=== PATIENT | male | born 1945 | race Caucasian/White ===

== ENCOUNTER 2024-08-08 14:31 | Inpatient (IN) | payer OTHER, MEDICAID ==
[~2024-08-08] VITALS: Ht 172.7 cm; Wt 59.1 kg
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
[2024-08-08 14:40] VITALS: PULSE 80; RESP 12; O2SAT 98
[2024-08-08] MEDS: LORazepam 2MG/ML-1ML VIAL IV ONE (15:05)
[2024-08-08] MEDS: SODIUM CHLORIDE 0.9% 500 ML IV ONE (15:05)
[2024-08-08 15:35] LABS: Basophils # (auto) 0 10 ^3/uL (0-0.2); Chloride 110 mmol/L (98-107); Eosinophils # (auto) 0.1 10 ^3/uL (0-0.8); Hemoglobin 9.8 g/dL (13.5-17.5); Lymphocytes # (auto) 0.9 10 ^3/uL (0.4-5.4); Neutrophils # (auto) 4.3 10 ^3/uL (1.6-8.6); Potassium 3.3 mmol/L (3.5-5.1); Sodium 141 mmol/L (136-145); White Blood Cell 5.8 10^3/uL (4.4-10.8)
[2024-08-08 15:36] LABS: Anion Gap 6 (5-15); Calcium 7.5 mg/dL (8.7-10.4); Carbon Dioxide 25 mmol/L (20-31)
[2024-08-08 15:37] LABS: Basophils % (auto) 0.5 % (0.0-2.0); Eosinophils % (auto) 2.4 % (0.0-7.0); Hematocrit 29.8 % (41.0-53.0); Lymphocytes % (auto) 15.1 % (10.0-50.0); Mean Corpuscular Volume 78.6 fL (80.0-100.0); Monocytes # (auto) 0.5 10 ^3/uL (0-1.3); Monocytes % (auto) 8.3 % (0.0-12.0); Neutrophils % (auto) 73.7 % (37.0-80.0); Platelet Count (auto) 241 10^3/uL (140-450); Red Blood Cells 3.79 10^6/uL (4.5-5.90); Red Cell Distribution Width 15.3 % (11.8-14.3)
[2024-08-08 15:41] LABS: Blood Urea Nitrogen 22 mg/dL (9-23); Glucose 83 mg/dL (74-106)
[2024-08-08 19:30] VITALS: PULSE 88; RESP 13; O2SAT 97
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
[2024-08-08] MEDS ORDERED: MORPHINE SULFATE INJ 2 MG/ml SYRG IV PRN (22:45)
[2024-08-08] MEDS ORDERED: ACETAMINOPHEN 325 MG TAB PO PRN (22:45)
[2024-08-08] MEDS ORDERED: ONDANSETRON HCL 4 MG/2 ML VIAL IV PRN (22:45)
[2024-08-08] MEDS ORDERED: hydrALAZINE HCL 20 MG/ML VL IV PRN (22:45)
[2024-08-08] MEDS ORDERED: NITROGLYCERIN 0.4 MG SL TAB SL PRN (22:45)
[2024-08-08] MEDS: CALCIUM GLUC 1,000mg/50ml-NS 50 ML IV ONE (23:25)
[2024-08-08] MEDS: POTASSIUM CHL 20 Meq TABLET PO ONE (23:27)
[2024-08-09] VITALS (8 sets, daily range): BP systolic 119–168; BP diastolic 68–90; PULSE 60–82; RESP 16–18; TEMP 97.6–98.7; O2SAT 93–98
[2024-08-09] MEDS: MORPHINE SULFATE INJ 2 MG/ml SYRG IV PRN (01:23)
[2024-08-09] MEDS: GABAPENTIN 300 MG CAP PO ONE (04:02)
[2024-08-09] MEDS: HYDROcodone-ACET 5/325MG TAB PO PRN (04:04)
[2024-08-09] MEDS: SODIUM CHLOR 0.9% PF (SALINE LOCK) 10ML VIAL/SYR IV SCH (06:00)
[2024-08-09 06:34] LABS: Basophils # (auto) 0 10 ^3/uL (0-0.2); Basophils % (auto) 0.5 % (0.0-2.0); Eosinophils # (auto) 0.3 10 ^3/uL (0-0.8); Hematocrit 28.7 % (41.0-53.0); Hemoglobin 9.5 g/dL (13.5-17.5); Lymphocytes # (auto) 1.1 10 ^3/uL (0.4-5.4); Lymphocytes % (auto) 20.7 % (10.0-50.0); Mean Corpuscular Hemoglobin 26.1 pg (28.0-32.0); Mean Corpuscular Hgb Conc. 33.1 g/dL (32.0-36.0); Mean Corpuscular Volume 78.7 fL (80.0-100.0); Monocytes # (auto) 0.5 10 ^3/uL (0-1.3); Monocytes % (auto) 9.9 % (0.0-12.0); Neutrophils # (auto) 3.3 10 ^3/uL (1.6-8.6); Neutrophils % (auto) 62.9 % (37.0-80.0); Nucleated Red Blood Cells % 0.1 %; Platelet Count (auto) 219 10^3/uL (140-450); Red Blood Cells 3.64 10^6/uL (4.5-5.90); Red Cell Distribution Width 15.2 % (11.8-14.3); White Blood Cell 5.3 10^3/uL (4.4-10.8)
[2024-08-09 06:55] LABS: Alanine Aminotransferase 17 U/L (7-40); Alkaline Phosphatase 102 U/L (46-116); Anion Gap 5 (5-15); Aspartate Aminotransferase 16 U/L (13-40); BUN/Creatinine Ratio 19.1 (10.0-20.0); Blood Urea Nitrogen 18 mg/dL (9-23); Calcium 8.8 mg/dL (8.7-10.4); Carbon Dioxide 28 mmol/L (20-31); Chloride 106 mmol/L (98-107); Glucose 89 mg/dL (74-106); Sodium 139 mmol/L (136-145)
[2024-08-09 06:56] LABS: Albumin 3.1 g/dL (3.2-4.8); Bilirubin, Total 0.7 mg/dL (0.2-1.0); Total Protein 6.1 g/dL (5.7-8.2)
[2024-08-09] MEDS ORDERED: cloNIDine HCL 0.1 MG TAB PO PRN (07:15)
[2024-08-09] MEDS: GABAPENTIN 300 MG CAP PO SCH (09:24)
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
[2024-08-10] VITALS (8 sets, daily range): BP systolic 119–164; BP diastolic 70–88; PULSE 62–76; RESP 16–21; TEMP 97.5–98.2; O2SAT 19–99
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
[2024-08-11] VITALS (8 sets, daily range): BP systolic 114–151; BP diastolic 68–91; PULSE 62–80; RESP 16–20; TEMP 97.7–98.6; O2SAT 94–99
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
[2024-08-12] VITALS (7 sets, daily range): BP systolic 113–140; BP diastolic 65–78; PULSE 60–83; RESP 17–19; TEMP 97.4–98.1; O2SAT 95–97
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
[2024-08-12] MEDS: GABAPENTIN 300 MG CAP PO SCH (13:13)
[2024-08-13 07:30] VITALS: RESP 19; O2SAT 97
[2024-08-13 09:00] VITALS: BP 118/60; PULSE 68; RESP 20; TEMP 97.1; O2SAT 93
[2024-08-13 13:00] VITALS: BP 111/72; PULSE 72; RESP 21; TEMP 98.2; O2SAT 94
[2024-08-13 17:00] VITALS: BP 111/76; PULSE 73; RESP 21; TEMP 98.8; O2SAT 98
[2024-08-13 22:00] VITALS: BP 121/81; PULSE 85; RESP 22; TEMP 97.6; O2SAT 99
[2024-08-14 05:00] VITALS: BP 104/64; PULSE 61; RESP 22; TEMP 98; O2SAT 97
[2024-08-14 08:54] VITALS: BP 116/69; PULSE 62; RESP 17; TEMP 97.7; O2SAT 99
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
[2024-08-14 12:39] VITALS: BP 124/70; PULSE 72; RESP 17; TEMP 98; O2SAT 100
[2024-08-14 17:00] VITALS: BP 118/71; PULSE 67; RESP 17; TEMP 98.1; O2SAT 99
[2024-08-14 20:00] VITALS: PULSE 82; RESP 17
[2024-08-14 21:00] VITALS: BP 115/66; PULSE 84; RESP 18; TEMP 98.7; O2SAT 97
[2024-08-14] MEDS: DOCUSATE SOD 100 MG CAP PO PRN (21:00)
[2024-08-15 01:00] VITALS: BP 116/65; PULSE 65; RESP 18; TEMP 97.7; O2SAT 98
[2024-08-15 05:00] VITALS: BP 120/69; PULSE 68; RESP 18; TEMP 97.6; O2SAT 98
[2024-08-15 08:00] VITALS: PULSE 62; RESP 17; O2SAT 97
[2024-08-15 09:00] VITALS: BP 127/75; PULSE 62; RESP 17; TEMP 97.6; O2SAT 97
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
[2024-08-15 11:40] VITALS: BP 128/78; PULSE 66; RESP 17
== END 2024-08-15 14:20 | DRG 641 ==
LOC: ER 14:31 → EDBD 14:31 → OVERFLOW 22:33 → EAST 22:38
PROVIDERS: ADMIT Internal Medicine; ATTEND Family Medicine
DX: R62.7 Adult failure to thrive (principal); Z68.1 Body mass index [BMI] 19.9 or less, adult; E44.0 Moderate protein-calorie malnutrition; G62.9 Polyneuropathy, unspecified; G89.29 Other chronic pain; T50.995A Adverse effect of other drugs, medicaments and biological substances, initial encounter; Z79.899 Other long term (current) drug therapy; Y92.89 Other specified places as the place of occurrence of the external cause; R19.7 Diarrhea, unspecified
CPT/HCPCS: 36415; 80048; 80053; 85025; 86850; 86900; 86901; 97110; 97116; 97163; 97530; G0378

== ENCOUNTER 2024-12-24 18:53 | Emergency (ER) | payer OTHER, MEDICAID ==
[2024-12-25] MEDS ORDERED: GABA-1250 PO (14:43)
[2024-12-25] MEDS ORDERED: CLON0.1T PO (14:45)
[2024-12-25] MEDS ORDERED: FURO20TA3 PO (14:45)
[2024-12-25] MEDS ORDERED: LACT10SO3 PO (14:46)
[2024-12-25] MEDS ORDERED: PANT40TA2 PO (15:08)
== END 2024-12-24 20:24 | disposition left against medical advice (07) ==
LOC: ER 18:53
DX: Z76.0 Encounter for issue of repeat prescription (principal); Z53.21 Procedure and treatment not carried out due to patient leaving prior to being seen by health care provider

== ENCOUNTER 2024-12-25 01:02 | Emergency (ER) | payer OTHER, MEDICAID ==
[~2024-12-25] VITALS: Ht 165.1 cm; Wt 55.5 kg
[2024-12-25] MEDS ORDERED: MORPHINE SULFATE INJ 2 MG/ml SYRG IM PRN (01:15)
[2024-12-25 01:51] VITALS: TEMP 97.5; O2SAT 97
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
[2024-12-25] MEDS: ONDANSETRON ODT 4 MG TAB PO ONE ×2 (02:17→02:23)
[2024-12-25] MEDS: ONDANSETRON ODT 4 MG TAB PO PRN (02:23)
[2024-12-25] MEDS: MORPHINE SULFATE INJ 2 MG/ml SYRG IM ONE ×2 (02:23)
[2024-12-25 02:57] VITALS: BP 107/57; PULSE 88; RESP 16
[2024-12-25] MEDS ORDERED: GABA-1250 PO (14:43)
[2024-12-25] MEDS ORDERED: FURO20TA3 PO (14:45)
[2024-12-25] MEDS ORDERED: CLON0.1T PO (14:45)
[2024-12-25] MEDS ORDERED: LACT10SO3 PO (14:46)
[2024-12-25] MEDS ORDERED: PANT40TA2 PO (15:08)
== END 2024-12-25 03:02 | disposition home or self-care (01) ==
LOC: ER 01:10
DX: G89.29 Other chronic pain (principal); M79.10 Myalgia, unspecified site; Z98.890 Other specified postprocedural states
CPT/HCPCS: 96372; 99283; J2270; Q0162

== ENCOUNTER 2024-12-25 07:51 | Inpatient (IN) | payer OTHER, MEDICARE, MEDICAID ==
[~2024-12-25] VITALS: Ht 165.1 cm; Wt 57.8 kg
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
[2024-12-25 09:15] LABS: Basophils # (auto) 0 10 ^3/uL (0-0.2); Eosinophils # (auto) 0.2 10 ^3/uL (0-0.8); Hematocrit 34.7 % (41.0-53.0); Monocytes # (auto) 0.5 10 ^3/uL (0-1.3); Red Blood Cells 4.32 10^6/uL (4.5-5.90)
[2024-12-25 09:18] LABS: Basophils % (auto) 0.5 % (0.0-2.0); Eosinophils % (auto) 2.4 % (0.0-7.0); Hemoglobin 11.2 g/dL (13.5-17.5); Lymphocytes # (auto) 1.2 10 ^3/uL (0.4-5.4); Lymphocytes % (auto) 14.8 % (10.0-50.0); Mean Corpuscular Hemoglobin 25.9 pg (28.0-32.0); Mean Corpuscular Hgb Conc. 32.3 g/dL (32.0-36.0); Mean Corpuscular Volume 80.3 fL (80.0-100.0); Monocytes % (auto) 5.7 % (0.0-12.0); Neutrophils % (auto) 76.6 % (37.0-80.0); Nucleated Red Blood Cells % 0.1 %; Platelet Count (auto) 220 10^3/uL (140-450); Red Cell Distribution Width 16.6 % (11.8-14.3); White Blood Cell 7.9 10^3/uL (4.4-10.8)
[2024-12-25 09:29] LABS: Urine Bacteria None Seen /hpf (None Seen)
[2024-12-25 09:31] LABS: Chloride 103 mmol/L (98-107); Potassium 4.2 mmol/L (3.5-5.1); Sodium 139 mmol/L (136-145)
[2024-12-25 09:32] LABS: Anion Gap 4 (5-15); Calcium 9.4 mg/dL (8.7-10.4)
[2024-12-25 09:37] LABS: Blood Urea Nitrogen 19 mg/dL (9-23)
[2024-12-25 09:38] LABS: Urine Blood 1+ /uL (Negative); Urine Clarity Ex.Turbid (Clear); Urine Color Light-Orange (Yellow); Urine Protein, UAD 1+ (Negative); Urine Specific Gravity 1.018 (1.001-1.035); Urine Squamous Epithelial Cell None Seen /hpf (<5); Urine Urobilinogen Normal (Negative); Urine WBC 2399 /HPF (0-3); Urine WBC Clumps PRESENT /hpf (None Seen)
[2024-12-25] MEDS: SODIUM CHLORIDE 0.9% 500 ML IV ONE (09:42)
[2024-12-25 09:43] LABS: Blood Alcohol < 3.0 mg/dL (<10); Carbon Dioxide 32 mmol/L (20-31); Glucose 119 mg/dL (74-106)
--- NOTE | 2024-12-25 09:49 | DVH ---
EXAM: CT LS SPINE WO CONTRAST HISTORY: LOWER BACK PAIN TO LOWER LEG COMPARISON: None CTDIvol 14.15 mGy, DLP 473.4 mGy*cm. TECHNIQUE: Multiple axial CT images of the spine were obtained using bone algorithm. Axial and coron al reformatting was done. Bone and soft tissue windows were reviewed. FINDINGS: No CT evidence of definite acute fracture, spinal dislocation, or significant appearing acute subluxa tion is seen. The visualized paraspinal soft tissues are grossly unremarkable. Advanced multilevel degenerative changes of the spine with multilevel degenerative disc space narrowi ng, disc osteophyte and facet hypertrophy. There is suggest ion of moderate to severe canal and foraminal stenosis at L3-L4, L4-L5 and L5-S1. IMPRESSION: No definite CT evidence of acute fracture or dislocation of the bony lumbar spine. Advanced multilevel degenerative changes.
[2024-12-25] MEDS: ONDANSETRON HCL 4 MG/2 ML VIAL IV ONE (09:51)
[2024-12-25] MEDS: MORPHINE SULFATE INJ 2 MG/ml SYRG IV ONE (09:51)
[2024-12-25 10:25] LABS: Amphetamine Screen, Urine Neg (NEGATIVE); Barbiturate Scree,Urine Neg (NEGATIVE); Benzodiazephine Screen, Urine Neg (NEGATIVE); Cannabinoid Screen, Urine Neg (NEGATIVE); Cocaine Screen, Urine Neg (NEGATIVE); Opiate Scree,Urine Pos (NEGATIVE); Phencyclidine Screen, Urine Neg (NEGATIVE)
[2024-12-25] MEDS: cefTRIAXone 1GM/50ML D5W 50 ML IV ONE (10:28)
[2024-12-25] MEDS: LACTULOSE 20Gm/30ML SOLN PO ONE (10:52)
[2024-12-25] MEDS: SODIUM CHLORIDE 0.9% 1,000 ML IV ONE (10:57)
[2024-12-25] MEDS ORDERED: ACETAMINOPHEN 325 MG TAB PO PRN (11:15)
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
[2024-12-25 12:36] VITALS: BP 142/82; PULSE 67; RESP 16; TEMP 98.6; O2SAT 93; O2SAT 98
[2024-12-25 12:43] VITALS: BP 142/82; PULSE 67; RESP 16; TEMP 98.6; O2SAT 93
[2024-12-25] MEDS: MORPHINE SULFATE INJ 2 MG/ml SYRG IV PRN (14:19)
[2024-12-25] MEDS ORDERED: GABA-1250 PO (14:43)
[2024-12-25] MEDS ORDERED: FURO20TA3 PO (14:45)
[2024-12-25] MEDS ORDERED: CLON0.1T PO (14:45)
[2024-12-25] MEDS ORDERED: LACT10SO3 PO (14:46)
[2024-12-25] MEDS ORDERED: PANT40TA2 PO (15:08)
[2024-12-25 16:25] VITALS: BP 130/72; PULSE 67; RESP 16; O2SAT 98
[2024-12-25] MEDS: HYDROmorphone HCL 2 MG/ML VL/or syr IV ONE (18:09)
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
[2024-12-25 20:00] VITALS: RESP 18; O2SAT 96
[2024-12-25 21:00] VITALS: BP 98/52; PULSE 73; RESP 16; TEMP 97.8; O2SAT 96
[2024-12-25] MEDS: CYCLOBENZAPRINE HCL 10 MG TAB PO SCH (22:23)
[2024-12-25] MEDS: MORPHINE SULF 15mg ER tab PO SCH (22:23)
[2024-12-26] VITALS (7 sets, daily range): BP systolic 122–145; BP diastolic 56–80; PULSE 66–76; RESP 16–20; TEMP 97.6–98.3; O2SAT 97
[2024-12-26] MEDS: HYDROcodone-ACET 5/325MG TAB PO PRN (03:07)
[2024-12-26] MEDS: cefTRIAXone 1GM/50ML D5W 50 ML IV SCH (09:32)
[2024-12-26] MEDS: ENOXAPARIN SOD 30 MG/0.3 ML SYRINGE SC SCH (09:33)
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
[2024-12-26] MEDS: MORPHINE SULFATE 10 MG/5 ML ORAL SOLN PO PRN (11:58)
[2024-12-26 13:42] LABS: Basophils # (auto) 0 10 ^3/uL (0-0.2); Basophils % (auto) 0.6 % (0.0-2.0); Eosinophils # (auto) 0.2 10 ^3/uL (0-0.8); Eosinophils % (auto) 2.6 % (0.0-7.0); Hematocrit 30.1 % (41.0-53.0); Hemoglobin 10.1 g/dL (13.5-17.5); Lymphocytes # (auto) 1.1 10 ^3/uL (0.4-5.4); Lymphocytes % (auto) 19.8 % (10.0-50.0); Mean Corpuscular Hgb Conc. 33.4 g/dL (32.0-36.0); Mean Corpuscular Volume 80.6 fL (80.0-100.0); Monocytes # (auto) 0.5 10 ^3/uL (0-1.3); Monocytes % (auto) 8.3 % (0.0-12.0); Neutrophils # (auto) 3.9 10 ^3/uL (1.6-8.6); Neutrophils % (auto) 68.7 % (37.0-80.0); Nucleated Red Blood Cells % 0.1 %; Platelet Count (auto) 193 10^3/uL (140-450); Red Blood Cells 3.73 10^6/uL (4.5-5.90); Red Cell Distribution Width 17.1 % (11.8-14.3); White Blood Cell 5.7 10^3/uL (4.4-10.8)
[2024-12-26 13:58] LABS: Alanine Aminotransferase 14 U/L (7-40); Alkaline Phosphatase 101 U/L (46-116); Anion Gap 6 (5-15); Aspartate Aminotransferase 20 U/L (13-40); BUN/Creatinine Ratio 15.1 (10.0-20.0); Bilirubin, Total 0.6 mg/dL (0.2-1.0); Blood Urea Nitrogen 14 mg/dL (9-23); Calcium 9.3 mg/dL (8.7-10.4); Carbon Dioxide 28 mmol/L (20-31); Chloride 106 mmol/L (98-107); Glucose 89 mg/dL (74-106); Potassium 3.8 mmol/L (3.5-5.1); Sodium 140 mmol/L (136-145); Total Protein 6.3 g/dL (5.7-8.2)
[2024-12-26 13:59] LABS: Albumin 3.2 g/dL (3.2-4.8)
[2024-12-27] VITALS (8 sets, daily range): BP systolic 121–157; BP diastolic 68–96; PULSE 62–77; RESP 15–18; TEMP 97.5–98.3; O2SAT 95–98
[2024-12-27] MEDS: KETOROLAC TROMETH 30 MG/ML 1ML VIAL IV ONE (00:50)
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
--- NOTE | 2024-12-27 14:20 | DVHINCON2 ---
Date Seen: Dec 27, 2024 Referring Physician MD Elicia Reason for Consultation Cardiac risk stratification History of Present Illness This is a 79-year-old man who presented to the emergency room with a chief complaint of severe back pain. The patient with severe back pain underwent a lumbar spine CT revealing advanced multilevel degenerative changes. Cardiology consulted for cardiac risk stratification by orthopedic team given tentative surgical procedure. Patient denies any chest pain, palpitations, diaphoresis, SOB, dizziness, or syncopal events. Denies exertional angina or dyspnea on exertion. Functional capacity could not be assessed given his limitations of physical activity secondary to back pain for the past years. He underwent a 12 lead electrocardiogram revealing a normal sinus rhythm without evidence of acute ischemia. A transthoracic echocardiogram revealed an EF of 55% with normal RV function. Significant medical history includes chronic pain syndrome, neuropathy, hypertension, GERD, and hard of hearing. Past Medical History Past medical history reviewed. No other significant than mentioned above. Past Surgical History Right femur Family History: Patient reports no known family medical history. Family History Family history reviewed. Social History Denies the use of illicit drugs, alcohol, or tobacco use. Allergies: Coded Allergies: NO KNOWN ALLERGIES (Unverified , 08/08/24) Home Meds Reported Medications Pantoprazole Sodium Sesquihydr (Protonix) 40 Mg Tab, 40 MG PO BID, #30 TAB 12/25/24 Lactulose (Lactulose) 10 Gm/15 Ml [place], 30 GM PO BID, ML 12/25/24 Furosemide (Furosemide) 20 Mg Tab, 1 TAB PO BID, #90 TAB 1 Refill 12/25/24 Clonidine Hydrochloride (Clonidine Hcl) 0.1 Mg Tab, 0.1 MG PO QIDPRN, TAB 12/25/24 Gabapentin (Gabapentin) 300 Mg Cap, 1 CAP PO TID, #90 CAP 5 Refills 12/25/24 Home Meds Home medications reviewed. Review of Systems Constitutional: No symptom reported Ears, Nose, & Throat: No symptom reported Eyes: No symptom reported Neurological: No symptoms reported Pulmonary/Respiratory: No symptom reported Cardiovascular: No symptom reported Gastrointestinal: No symptom reported Genitourinary: No symptom reported Musculoskeletal: Severe back pain Skin: No symptom reported Psychiatric: No symptom reported Endocrine: No symptom reported Hemotologic/Lymphatic: No symptom reported Vital Signs Vital Signs Date Time Temp Pulse Resp B/P (MAP) Pulse Ox O2 Delivery O2 Flow Rate FiO2 3/22/25 13:00 97.7 65 16 143/90 (107) 97 97.7 12/27/24 08:00 Room Air* 0 21 Physical Exam General Appearance: Cooperative. Chronically ill. Hard of hearing. In no acute distress Head Exam: Normal inspection Neck Exam: Normal inspection. Non-tender. Normal alignment Pulmonary/Respiratory: Chest non-tender. Clear bilateral breath sounds Cardiovascular/Chest: Regular rate and rhythm. S1, S2. NSR. No murmurs. No JVD. Peripheral Pulses: 2+ Radial (R). 2+ Radial (L). 2+ Pedal (R). 2+ Pedal (L) Abdominal Exam: Normal bowel sounds. Soft. Nontender. No hepatospenomegaly. No masses Ankle Exam: Negative ankle edema Lower extremities: Negative lower extremity edema Neuro/Mental Status: A&O x3. Coherent Thoughts/Psych: Normal thought pattern. Appropriate mood and affect. Good judgement and insight Appearance: In no acute distress Skin Exam: Normal inspection. Normal color. Warm. Dry Labs/Diagnostic Data Labs Test 12/26/24 13:25 12/25/24 09:00 12/25/24 08:51 Range/Units White Blood Count 5.7 # 4.4-10.8 10^3/uL Red Blood Count 3.73 L 4.5-5.90 10^6/uL Hemoglobin 10.1 L 13.5-17.5 g/dL Hematocrit 30.1 #L 41.0-53.0 % Mean Corpuscular Volume 80.6 80.0-100.0 fL Mean Corpuscular Hemoglobin 27.0 L 28.0-32.0 pg Mean Corpuscular Hemoglobin Concent 33.4 32.0-36.0 g/dL Red Cell Distribution Width 17.1 H 11.8-14.3 % Platelet Count 193 140-450 10^3/uL Mean Platelet Volume 7.3 6.9-10.8 fL Neutrophils (%) (Auto) 68.7 37.0-80.0 % Lymphocytes (%) (Auto) 19.8 10.0-50.0 % Monocytes (%) (Auto) 8.3 0.0-12.0 % Eosinophils (%) (Auto) 2.6 0.0-7.0 % Basophils (%) (Auto) 0.6 0.0-2.0 % Neutrophils # (Auto) 3.9 1.6-8.6 10 ^3/uL Lymphocytes # (Auto) 1.1 0.4-5.4 10 ^3/uL Monocytes # (Auto) 0.5 0-1.3 10 ^3/uL Eosinophils # (Auto) 0.2 0-0.8 10 ^3/uL Basophils # (Auto) 0 0-0.2 10 ^3/uL Nucleated Red Blood Cells 0.1 % Sodium Level 140 136-145 mmol/L Potassium Level 3.8 3.5-5.1 mmol/L Chloride Level 106 98-107 mmol/L Carbon Dioxide Level 28 20-31 mmol/L Anion Gap 6 5-15 Blood Urea Nitrogen 14 9-23 mg/dL Creatinine 0.93 0.700-1.30 mg/dL Glomerular Filtration Rate Calc 85 >90 mL/min BUN/Creatinine Ratio 15.1 10.0-20.0 Serum Glucose 89 74-106 mg/dL Calcium Level 9.3 8.7-10.4 mg/dL Total Bilirubin 0.6 0.2-1.0 mg/dL Aspartate Amino Transferase (AST) 20 13-40 U/L Alanine Aminotransferase (ALT) 14 7-40 U/L Alkaline Phosphatase 101 46-116 U/L Total Protein 6.3 5.7-8.2 g/dL Albumin 3.2 3.2-4.8 g/dL Urine Color Light-orange Yellow Urine Clarity Ex.turbid Clear Urine pH 6.0 5.0-9.0 Urine Specific [place] 1.018 1.001-1.035 Urine Protein 1+ H Negative Urine Ketones Trace Negative Urine Blood 1+ H Negative /uL Urine Nitrite Negative Negative Urine Bilirubin Negative Negative Urine Urobilinogen Normal Negative mg/dL Urine Leukocyte Esterase 3+ Negative /uL Urine RBC 14 0 - 3 /hpf Urine WBC Clumps Present None Seen /hpf Urine Microscopic WBC 2399 H 0-3 /HPF Urine Squamous Epithelial Cells None seen <5 /hpf Urine Bacteria None seen None Seen /hpf Urine Glucose Normal Normal mg/dL Urine Opiates Screen Pos NEGATIVE Urine Fentanyl Screen Neg NEGATIVE Urine Barbiturates Screen Neg NEGATIVE Urine Phencyclidine Screen Neg NEGATIVE Urine Amphetamines Screen Neg NEGATIVE Urine Benzodiazepines Screen Neg NEGATIVE Urine Cocaine Screen Neg NEGATIVE Urine Cannabinoids Screen Neg NEGATIVE Plasma/Serum Blood Alcohol < 3.0 <10 mg/dL Microbiology Date/Time Source Procedure Growth Status 12/25/24 09:00 Voided Urine Urine Culture - Final Enterobacter cloacae Complete Assessment Preprocedural cardiovascular examination Djzqjzum-sg-zwmxil canal and foraminal stenosis Hypertension Hard of hearing Plan/Recommendation (Dr. Leigh) Echocardiogram reveals EF 55% and normal valve function. Twelve lead electrocardiogram revealed a normal sinus rhythm without evidence of ischemia. Revised cardiac risk index (José criteria): 3.9% risk of , [place] or cardiac arrest. Patient has no underlying history of congestive heart failure or coronary artery disease. Per Cardiology standpoint, the patient is at an acceptable-risk for moderate to high-risk surgery. There is no additional cardiac workup indicated prior to surgery. Thank you for allowing us to care for this patient. Please call with any questions or concerns. This medical document was created using an electronic medical record system with voice recognition software and computerized dictation system. Although this document has been carefully reviewed, there might still be some phonetic and typographical errors. Occasional wrong-word or ``sound-alike substitutions may have occurred due to the inherent limitations of voice recognition software. These areas are purely typographical due to imperfections of the software programs and do not reflect any compromise in the patient's medical care. Please read the chart carefully and recognize, using context, where these substitutions have occurred. Plan discussed with: Patient, Other NYHA Physical activity limitations: NA Date of Service: Dec 27, 2024 Billing Provider: BRIANA GRIFFIN Cardiology Common Codes: [id number] INP/OBS CARE (High) BRIANA GRIFFIN Dec 27, 2024 14:20
--- NOTE | 2024-12-27 16:50 | DVHSR ---
APPROVED REPORT EXAM: Two-dimensional and M-mode echocardiogram with Doppler and color Doppler. INDICATION Pre-Op RISK FACTORS Height: 5'5, Weight: 136 DIMENSIONS LVDd3.7 (3.8-5.7cm)LA (2D)3.2 (1.9-4.0cm)Aortic Root3.7 (2.0-3.7cm) LVDs2.8 (2.5-4.0cm)LA (MM) (1.9-4.0cm)Aortic Cusp Exc1.9 (1.5-2.0cm) EF (%) 53.0 (55-70%)Rt. Atrium (1.9-4.0cm)Asc. Aorta4.0 cm IVSd1.0 (0.7-1.1cm)RV (D) (1.8-2.4cm) PWd0.6 (0.7-1.1cm) Mitral Valve MitralMitral Stenosis E wave0.56m/sMV Mean GR.mmHg A wave0.81m/sMV Peak GR.88mmHg E/A ratio0.72D MVAcm2 DECEL [id number] 1/2 Tim[place] Aortic Valve Aortic ValveAortic Stenosis V10.88m/Lynda Mean GR.4mmHg V21.29m/Lynda Peak GR.7mmHg LVOT Diameter2.1 (1.8-2.4cm)Doppler AVA2.36cm2 Tricuspid Valve TR Velocity1.88m/s [id number] Other Information Quality : Technically LimitedRhythm : Technically limited study due to body habitus.patient position. Conclusion Sinus rhythm. Mild aortic root enlargement. Sigmoid septum. Mild RV enlargement. Concentric LVH. Left ventricular systolic performance is normal. EF is 55% with normal RV function. No Doppler anomalies. Mild TR No pericardial effusion masses or vegetations.
[2024-12-27] MEDS: HYDROmorphone HCL 2 MG/ML VL/or syr IV PRN (18:05)
[2024-12-28] VITALS (7 sets, daily range): BP systolic 143–155; BP diastolic 88–95; PULSE 67–74; RESP 16–17; TEMP 97.6–98.3; O2SAT 94–98
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
[2024-12-29] VITALS (8 sets, daily range): BP systolic 128–149; BP diastolic 66–91; PULSE 60–69; RESP 15–20; TEMP 97.3–98; O2SAT 94–100
--- NOTE | 2024-12-29 08:04 | ECG ---
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
[2024-12-29 11:38] LABS: Basophils # (auto) 0 10 ^3/uL (0-0.2); Basophils % (auto) 0.5 % (0.0-2.0); Eosinophils # (auto) 0.3 10 ^3/uL (0-0.8); Eosinophils % (auto) 6.4 % (0.0-7.0); Hematocrit 35.7 % (41.0-53.0); Hemoglobin 11.7 g/dL (13.5-17.5); Lymphocytes # (auto) 0.9 10 ^3/uL (0.4-5.4); Lymphocytes % (auto) 21.4 % (10.0-50.0); Mean Corpuscular Hemoglobin 26.7 pg (28.0-32.0); Mean Corpuscular Hgb Conc. 32.8 g/dL (32.0-36.0); Mean Corpuscular Volume 81.4 fL (80.0-100.0); Monocytes # (auto) 0.4 10 ^3/uL (0-1.3); Monocytes % (auto) 8.9 % (0.0-12.0); Neutrophils # (auto) 2.7 10 ^3/uL (1.6-8.6); Neutrophils % (auto) 62.8 % (37.0-80.0); Nucleated Red Blood Cells % 0.1 %; Platelet Count (auto) 183 10^3/uL (140-450); Red Blood Cells 4.38 10^6/uL (4.5-5.90); Red Cell Distribution Width 16.4 % (11.8-14.3); White Blood Cell 4.3 10^3/uL (4.4-10.8)
[2024-12-29 11:42] LABS: Anion Gap 7 (5-15); Carbon Dioxide 26 mmol/L (20-31); Chloride 103 mmol/L (98-107); Sodium 136 mmol/L (136-145)
[2024-12-29 11:43] LABS: Calcium 9.2 mg/dL (8.7-10.4)
[2024-12-29 11:48] LABS: BUN/Creatinine Ratio 12.1 (10.0-20.0); Blood Urea Nitrogen 11 mg/dL (9-23); Glucose 103 mg/dL (74-106)
--- NOTE | 2024-12-29 14:17 | DVHPN2 ---
Subjective Patient continues to report having lower back pain. Reviewed: Care Plan, H&P, Labs, Medications, Previous Orders Changes from previous H/P or p: No Changes General: Per HPI Musculoskeletal: back pain, hand pain, leg pain, foot pain Objective Vitals Vital Signs Date Time Temp Pulse Resp B/P (MAP) Pulse Ox O2 Delivery O2 Flow Rate FiO2 12/29/24 11:20 69 16 136/75 12/29/24 08:00 Room Air* 0 21 12/29/24 05:00 97.6 97 97.6 Intake/Output Intake and Output 12/29/24 07:00 Intake Total 50 ml Balance 50 ml IV Total 50 ml General Appearance: Alert, Oriented X3, Cooperative, No acute distress HEENT: Atraumatic, PERRLA, EOMI, Mucous membr. moist/pink Neck: Supple Lungs: Clear to auscultation, Normal air movement Cardiovascular: Regular rate, Normal S1, Normal S2, No murmurs, Gallops, Rubs Abdomen: Normal bowel sounds, Soft, No tenderness Neuro: Cranial nerves 3-12 NL Skin: Dry, Intact Psych/Mental Status: Mental status NL Medications Current Medications Medications Dose Ordered Sig/William Route Start Time Stop Time Status Last Admin Dose Admin Ceftriaxone Sodium 50 ml @ 100 mls/hr DAILY@09 IV 12/26/24 09:00 12/29/24 10:51 100 MLS/HR Acetaminophen/ Hydrocodone Bitart 1 tab Q4HP PRN PO 12/25/24 11:15 12/26/24 03:07 1 TAB Ondansetron HCl 4 mg Q4HP PRN IV 12/25/24 11:15 Enoxaparin Sodium 30 mg DAILY SC 12/26/24 10:00 12/29/24 10:50 30 MG Acetaminophen 650 mg Q6HP PRN PO 12/25/24 11:15 Cyclobenzaprine HCl 10 mg TID PO 12/25/24 22:00 12/29/24 13:58 10 MG Morphine Sulfate 15 mg Q4HP PRN PO 12/26/24 11:15 Hold 12/27/24 14:16 15 MG Hydromorphone HCl 1 mg Q4HPRN PRN IV 12/27/24 15:00 12/29/24 10:50 1 MG Docusate Sodium 100 mg BID PO 12/29/24 22:00 UNV Laboratory Results Laboratory Tests 12/29/24 10:36 Chemistry Test 12/29/24 10:36 Calcium Level 9.2 mg/dL (8.7-10.4) Urinalysis Test 12/25/24 09:00 Urine Color Light-orange (Yellow) Urine Clarity Ex.turbid (Clear) Urine pH 6.0 (5.0-9.0) Urine Specific [place] 1.018 (1.001-1.035) Urine Protein 1+ (Negative) H Urine Ketones Trace (Negative) Urine Blood 1+ /uL (Negative) H Urine Nitrite Negative (Negative) Urine Bilirubin Negative (Negative) Urine Urobilinogen Normal mg/dL (Negative) Urine Leukocyte Esterase 3+ /uL (Negative) Urine RBC 14 /hpf (0 - 3) Urine WBC Clumps Present /hpf (None Seen) Urine Microscopic WBC 2399 /HPF (0-3) H Urine Squamous Epithelial Cells None seen /hpf (<5) Urine Bacteria None seen /hpf (None Seen) Urine Glucose Normal mg/dL (Normal) Microbiology Microbiology Date/Time Source Procedure Growth Status 12/25/24 09:00 Voided Urine Urine Culture - Final Enterobacter cloacae Complete Labs and/or images reviewed: Labs reviewed by me, Image(s) reviewed by me Assessment/Plan Assessment/Plan Impression: -lumbar spinal stenosis with radiculopathy -chronic pain management with chronic opiate use -complicated cystitis Plan: -Patient states he is uncertain about having surgery. Communicated concerns with spinal surgery who will speak with pt. -pre-op diagnostics -Rocephin -pain management -bowel regimen -further course of care per surgical recommendations. Total time spent with patient discussing and formulating plan of care: 35 minutes. This medical document was created using an electronic medical record system with [employer] dictation system. Although this document has been carefully reviewed, there may still be some phonetic and typographical errors. These areas are purely typographical due to imperfections of the software programs, and do not reflect any compromise in the patient's medical care. Plan discussed with: Patient, Other (RN) My Orders Orders - JAMES HOWELL OPTICAL ASSISTANT Procedure Category Date Status Time Docusate Sodium PHA 12/29/24 Logged Capsule (Colace 22:00 Pt Request For Service PT 12/29/24 Logged 13:59 PTPTT LAB 12/30/24 Verified 04:00 Chest Xray 1 View XY 12/29/24 Logged 13:59 Basic Metabolic Panel LAB 12/30/24 Verified 04:00 Complete Blood Count LAB 12/30/24 Verified 04:00 Date of Service: Dec 29, 2024 Billing Provider: JAMES HOWELL NP Common Visit Codes: [id number] INP/OBS CARE(HIGH) JAMES HOWELL NP Dec 29, 2024 14:17
--- NOTE | 2024-12-29 15:40 | DVH ---
AP portable chest CLINICAL INDICATION: Preop FINDINGS: Heart size enlarged. Aorta tortuous. No infiltrates or effusions. Scoliosis with degenerat joel changes in the spine IMPRESSION: 1. No acute cardiopulmonary pathology
[2024-12-29] MEDS: DOCUSATE SOD 100 MG CAP PO SCH (22:15)
[2024-12-30] VITALS (7 sets, daily range): BP systolic 104–150; BP diastolic 69–90; PULSE 67–77; RESP 16–18; TEMP 97.3–98.3; O2SAT 94–98
[2024-12-30 07:23] LABS: Chloride 102 mmol/L (98-107); Potassium 4.1 mmol/L (3.5-5.1); Sodium 137 mmol/L (136-145)
[2024-12-30 07:24] LABS: Anion Gap 9 (5-15); Carbon Dioxide 26 mmol/L (20-31)
[2024-12-30 07:29] LABS: BUN/Creatinine Ratio 14.4 (10.0-20.0); Blood Urea Nitrogen 13 mg/dL (9-23); Glucose 91 mg/dL (74-106)
[2024-12-30 07:31] LABS: Basophils # (auto) 0 10 ^3/uL (0-0.2); Eosinophils # (auto) 0.2 10 ^3/uL (0-0.8); Hemoglobin 11.7 g/dL (13.5-17.5); INR 1.19 (0.9-1.15); Monocytes # (auto) 0.4 10 ^3/uL (0-1.3); Partial Thromboplastin Time 23.3 SEC (24.5-34.5); Prothrombin Time 12.4 sec (9.3-11.8); White Blood Cell 4.7 10^3/uL (4.4-10.8)
[2024-12-30 07:34] LABS: Basophils % (auto) 0.6 % (0.0-2.0); Eosinophils % (auto) 4.5 % (0.0-7.0); Hematocrit 35.6 % (41.0-53.0); Lymphocytes % (auto) 21.8 % (10.0-50.0); Mean Corpuscular Hemoglobin 26.9 pg (28.0-32.0); Mean Corpuscular Volume 81.6 fL (80.0-100.0); Monocytes % (auto) 9.2 % (0.0-12.0); Neutrophils % (auto) 63.9 % (37.0-80.0); Nucleated Red Blood Cells % 0.1 %; Platelet Count (auto) 190 10^3/uL (140-450); Red Blood Cells 4.36 10^6/uL (4.5-5.90); Red Cell Distribution Width 16.3 % (11.8-14.3)
[2024-12-30] MEDS: ONDANSETRON HCL 4 MG/2 ML VIAL IV PRN (12:19)
--- NOTE | 2024-12-30 13:58 | DVHPN2 ---
Subjective Patient reporting having lower back pain as well as pain to his feet and hands. States that current pain management is not appropriate. Reviewed: Care Plan, H&P, Labs, Medications, Previous Orders Changes from previous H/P or p: No Changes General: Per HPI Musculoskeletal: back pain, hand pain, leg pain, foot pain Objective Vitals Vital Signs Date Time Temp Pulse Resp B/P (MAP) Pulse Ox O2 Delivery O2 Flow Rate FiO2 12/30/24 09:14 75 18 137/81 12/30/24 09:00 97.4 97 97.4 12/30/24 08:00 Room Air* 0 21 Intake/Output Intake and Output 12/30/24 07:00 Intake Total 150 ml Output Total 400 ml Balance -250 ml Intake Oral 100 ml IV Total 50 ml Output Urine Total 400 ml General Appearance: Alert, Oriented X3, Cooperative, No acute distress HEENT: Atraumatic, PERRLA, EOMI, Mucous membr. moist/pink Neck: Supple Lungs: Clear to auscultation, Normal air movement Cardiovascular: Regular rate, Normal S1, Normal S2, No murmurs, Gallops, Rubs Abdomen: Normal bowel sounds, Soft, No tenderness Neuro: Cranial nerves 3-12 NL Skin: Dry, Intact Psych/Mental Status: Mental status NL Medications Current Medications Medications Dose Ordered Sig/William Route Start Time Stop Time Status Last Admin Dose Admin Ceftriaxone Sodium 50 ml @ 100 mls/hr DAILY@09 IV 12/26/24 09:00 12/30/24 09:11 100 MLS/HR Acetaminophen/ Hydrocodone Bitart 1 tab Q4HP PRN PO 12/25/24 11:15 12/30/24 12:19 1 TAB Ondansetron HCl 4 mg Q4HP PRN IV 12/25/24 11:15 12/30/24 12:19 4 MG Enoxaparin Sodium 30 mg DAILY SC 12/26/24 10:00 12/30/24 09:12 30 MG Acetaminophen 650 mg Q6HP PRN PO 12/25/24 11:15 Cyclobenzaprine HCl 10 mg TID PO 12/25/24 22:00 12/30/24 05:00 10 MG Morphine Sulfate 15 mg Q4HP PRN PO 12/26/24 11:15 Hold 12/27/24 14:16 15 MG Hydromorphone HCl 1 mg Q4HPRN PRN IV 12/27/24 15:00 12/30/24 09:14 1 MG Docusate Sodium 100 mg BID PO 12/29/24 22:00 12/30/24 09:11 100 MG Laboratory Results Laboratory Tests 12/30/24 06:50 Chemistry Test 12/30/24 06:50 Calcium Level 9.0 mg/dL (8.7-10.4) Coagulation Test 12/30/24 06:50 Prothrombin Time 12.4 sec (9.3-11.8) H Prothrombin Time INR 1.19 (0.9-1.15) H Activated Partial Thromboplast Time 23.3 SEC (24.5-34.5) L Urinalysis Test 12/25/24 09:00 Urine Color Light-orange (Yellow) Urine Clarity Ex.turbid (Clear) Urine pH 6.0 (5.0-9.0) Urine Specific [place] 1.018 (1.001-1.035) Urine Protein 1+ (Negative) H Urine Ketones Trace (Negative) Urine Blood 1+ /uL (Negative) H Urine Nitrite Negative (Negative) Urine Bilirubin Negative (Negative) Urine Urobilinogen Normal mg/dL (Negative) Urine Leukocyte Esterase 3+ /uL (Negative) Urine RBC 14 /hpf (0 - 3) Urine WBC Clumps Present /hpf (None Seen) Urine Microscopic WBC 2399 /HPF (0-3) H Urine Squamous Epithelial Cells None seen /hpf (<5) Urine Bacteria None seen /hpf (None Seen) Urine Glucose Normal mg/dL (Normal) Microbiology Microbiology Date/Time Source Procedure Growth Status 12/25/24 09:00 Voided Urine Urine Culture - Final Enterobacter cloacae Complete Labs and/or images reviewed: Labs reviewed by me, Image(s) reviewed by me Assessment/Plan Assessment/Plan Impression: -lumbar spinal stenosis with radiculopathy -chronic pain management with chronic opiate use -complicated cystitis Plan: -patient still pending re-evaluation by spinal surgery. -preop labs, chest x-ray reviewed. -continue Rocephin. -pain management : Stop [place], immediate relief morphine currently on hold. Start extended release morphine pain mg twice a day. -bowel regimen -further course of care per surgical recommendations. Total time spent with patient discussing and formulating plan of care: 35 minutes. This medical document was created using an electronic medical record system with [employer] dictation system. Although this document has been carefully reviewed, there may still be some phonetic and typographical errors. These areas are purely typographical due to imperfections of the software programs, and do not reflect any compromise in the patient's medical care. Plan discussed with: Patient, Other (RN) My Orders Orders - JAMES HOWELL NP Procedure Category Date Status Time Docusate Sodium PHA 12/29/24 In Process Capsule (Colace 22:00 Pt Request For Service PT 12/29/24 Logged 13:59 Chest Xray 1 View XY 12/29/24 Resulted 13:59 Morphine Extended PHA 12/30/24 Logged Release Tab (Oramorph 22:00 Date of Service: Dec 30, 2024 Billing Provider: JAMES HOWELL NP Common Visit Codes: [id number] INP/OBS CARE(HIGH) JAMES HOWELL NP Dec 30, 2024 13:58
[2024-12-30] MEDS: Ensure HIGH Protein Chocolate 8oz Bottle PO SCH (18:00)
[2024-12-30] MEDS: MORPHINE SULF 15mg ER tab PO SCH (22:24)
[2024-12-30] MEDS: CALCIUM CARB 500 MG CHEW TAB PO PRN (22:45)
[2024-12-31] VITALS (7 sets, daily range): BP systolic 102–130; BP diastolic 61–88; PULSE 67–92; RESP 16–19; TEMP 97.7–98.1; O2SAT 94–97
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
[2024-12-31] MEDS: MORPHINE SULFATE 10 MG/5 ML ORAL SOLN PO PRN (14:14)
[2024-12-31] MEDS ORDERED: MELATONIN 5 MG TAB PO ONE (22:00)
== END 2024-12-31 18:52 | disposition hospice, inpatient (51) | DRG 552 ==
LOC: ER 07:51 → OVERFLOW 11:11 → EAST 15:48
PROVIDERS: ADMIT Nurse Practitioner Acute Care; ATTEND Nurse Practitioner Acute Care
DX: M48.061 Spinal stenosis, lumbar region without neurogenic claudication (principal); M51.17 Intervertebral disc disorders with radiculopathy, lumbosacral region; M48.07 Spinal stenosis, lumbosacral region; D64.9 Anemia, unspecified; N30.90 Cystitis, unspecified without hematuria; G89.4 Chronic pain syndrome; G62.9 Polyneuropathy, unspecified; I10 Essential (primary) hypertension; M25.78 Osteophyte, vertebrae; K59.00 Constipation, unspecified; K21.9 Gastro-esophageal reflux disease without esophagitis; Z79.891 Long term (current) use of opiate analgesic; Z51.5 Encounter for palliative care; Z79.899 Other long term (current) drug therapy
CPT/HCPCS: 36415; 71045; 72131; 80048; 80053; 80307; 80320; 81001; 85025; 85610; 85730; 87086; 87088; 87186; 93005; 93306; 96361; 96374; 97163; G0378; J1885; J2405